=== PATIENT | male | born 2000 | race Caucasian/White ===

== ENCOUNTER 2025-03-09 08:26 | Emergency (ER) | payer BC ==
[~2025-03-09] VITALS: Ht 188 cm; Wt 94.0 kg
[2025-03-09] MEDS ORDERED: AMOXICILLIN500 MG PO (08:38)
[2025-03-09] MEDS ORDERED: LIDOCAINE HCL100 ML MT (08:38)
[2025-03-09] MEDS ORDERED: HYDROmorphone HCL 1 MG/ML SYR IV PRN (09:00)
[2025-03-09] MEDS ORDERED: ondansetron HCL 4 MG/2 ML VIAL IV ONE (09:00)
[2025-03-09] MEDS ORDERED: KETOROLAC TROMETHAMINE 30 MG/ML VIAL IV ONE (09:00)
[2025-03-09] MEDS ORDERED: DEXAMETHASONE SOD PHOS 10 MG/ML VIAL IV ONE (09:00)
[2025-03-09] MEDS ORDERED: AMOXICILLIN 500 MG CAP PO ONE (09:00)
[2025-03-09] MEDS ORDERED: SODIUM CHLORIDE 0.9% 1,000 ML IV ONE (09:00)
[2025-03-09 09:04] LABS: BASOPHILS 0.2 % (0-2); EOSINOPHILS 0.4 % (0-6); HEMATOCRIT 41.1 % (35.0-50.0); HEMOGLOBIN 14.6 g/dL (12.0-18.0); LYMPHOCYTES 7.3 % (24-44); MCH 30.5 (27-36); MCHC 35.6 g/dl (30-36); MCV 85.8 fl (81-99); MONOCYTES 8.5 % (0-12); NEUTROPHILS 83.6 % (39-80); PLATELET COUNT 248 K/uL (140-440); RBC 4.79 M/ul (4.3-5.7); RDW 12.6 (10.5-15.0)
[2025-03-09] MEDS ORDERED: ONDANSETRON ODT8 MG PO (09:06)
[2025-03-09] MEDS ORDERED: HYDROCODON-ACE1 EA11 PO (09:53)
[2025-03-09 10:09] VITALS: BP 126/77
== END 2025-03-09 10:10 | disposition home or self-care (01) ==
LOC: ED 08:26
PROVIDERS: Emergency Medicine
DX: J02.9 Acute pharyngitis, unspecified (principal)
CPT/HCPCS: 36415; 85025; 96374; 96375; 99283-25; J1100; J1171; J1885; J2405; J7030